=== PATIENT | female | born 1995 | race Caucasian/White ===

== ENCOUNTER 2017-05-10 15:48 | Emergency (ER) | payer OTHER ==
[~2017-05-10] VITALS: Wt 104.7 kg
[~2017-05-10 15:48] MED LIST: PRENAT PO
--- NOTE | 2017-05-10 16:36 | QN ---
Documentation Comment Patient was seen immediately upon arrival as the patient arrived by ambulance. The patient has a complaint of chest pain and will be sent to triage for vital signs and will be seen by another provider. Medical screening exam was initiated. EDWARD KAPADIA MD May 10, 2017 16:36
[2017-05-10] MEDS ORDERED: IBUPROFEN 600 MG TAB PO ONE ×3 (17:30→20:30)
[2017-05-10 17:59] LABS: D-DIMER 464.05 ng/ml (<460)
[2017-05-10] MEDS ORDERED: SOD CHLORIDE 0.9% 1,000 ML IV STA (18:14)
[2017-05-10 19:23] LABS: ALBUMIN 4.6 g/dl (3.3-4.9); ALBUMIN/GLOBULIN RATIO 1.39; BILIRUBIN,INDIRECT 0.2 mg/dl (0-1.1); BILIRUBIN,TOTAL 0.2 mg/dl (0.2-1.3); CALCIUM 9.1 mg/dl (8.4-10.2); CREATININE 0.62 mg/dl (0.44-1.00); POTASSIUM 3.9 mmol/L (3.5-5.1); TOTAL PROTEIN 7.9 g/dl (6.1-8.1)
[2017-05-10] MEDS ORDERED: IOHEXOL 100 ML ONE (19:40)
[2017-05-10] MEDS ORDERED: SOD CHLORIDE 0.9% 100 ML ONE (19:40)
[2017-05-10 19:45] LABS: BASOPHILS % 0.3 % (0.0-2.0); EOSINOPHILS # 0.1 10^3/ul (0.0-0.5); HEMATOCRIT 36.1 % (37.0-47.0); HEMOGLOBIN 12.4 g/dl (12.0-16.0); LYMPHOCYTES # 3.7 10^3/ul (0.8-2.9); LYMPHOCYTES % 37.1 % (15.0-51.0); MEAN CORPUSCULAR HEMOGLOBIN 29.7 pg (29.0-33.0); MEAN CORPUSCULAR HGB CONC 34.3 g/dl (32.0-37.0); MEAN CORPUSCULAR VOLUME 86.6 fl (82.0-101.0); MEAN PLATELET VOLUME 9.6 fl (7.4-10.4); MONOCYTE # 0.4 10^3/ul (0.3-0.9); MONOCYTES % 3.9 % (0.0-11.0); NEUTROPHIL # 5.7 10^3/ul (1.6-7.5); NEUTROPHILS % 57.4 % (39.0-77.0); PLATELET COUNT 285 10^3/UL (140-415); RED BLOOD COUNT 4.17 10^6/ul (4.20-5.40); RED CELL DISTRIBUTION WIDTH 12.1 % (11.5-14.5)
--- NOTE | 2017-05-10 20:19 | RADRPT ---
PROCEDURE: CT Pulmonary Angiogram. CLINICAL INDICATION: Chest pain and shortness of breath. TECHNIQUE: CT pulmonary angiogram and a CT scan of the chest with contrast was performed. The pat ient was scanned following the uncomplicated intravenous administration of 100 cc of Omnipaque-350 i ntravenous contrast. 2-D coronal reformatted images were obtained from the axial source images. In addition, 3-D post processing was performed. Total exam DLP is 699.78 mGy-cm. CTDIvol is 42.25 mG y. One or more of the following dose reduction techniques were used: Automated exposure control, ad justment of the mA and/or kV according to patient size, use of iterative reconstruction technique. D ICOM images are available. COMPARISON: None available. FINDINGS: The pulmonary arteries are normal with no filling defect or lack of enhancement to suggest pulmonary artery embolism. The lungs are clear. There is no pulmonary airspace or interstitial disease. There is no pulmonary nodule or mass lesion. There is no pneumothorax. There is no mediastinal or hilar lymphadenopathy or mass. There is no pleural effusion. There is no pericardial effusion. The thoracic aorta is normal with no aneurysm or dissection. Images through the upper abdomen demonstrate normal visualized portions of the liver, spleen, and ad renals. The osseous structures are normal with no fracture or lytic lesion. IMPRESSION: 1. Normal CT pulmonary angiogram with no evidence of pulmonary artery embolism. 2. Normal CT scan of the chest. RPTAT: QQ .Kwame Holland MD, Date Time Electronically viewed and signed by .Kwame Holland MD, MD on 05/10/2017 20:19 .R/
[2017-05-10] MEDS ORDERED: IBUP-1542 PO (20:24)
[2017-05-10 20:50] VITALS: BP 118/69; PULSE 70; RESP 16; TEMP 97.9
--- NOTE | 2017-05-11 04:52 | ERD ---
ER Documentation Chief Complaint Chief Complaint BIB EMS CP X2 WKS, INT BODY NUMBNESS TO L SIDE, NEG NEURO DEF HPI Patient is a 21-year-old female brought in by EMS from her primary care physician's office for concerns of these 2 weeks. Patient describes her chest pain to be in her left chest and constant. Patient states she has pain in her left arm as well. Patient reports numbness throughout her left body. Patient states it feels as if "my left-sided body is asleep." Patient does report to intermittent shortness of breath. Patient denies any cough. Patient admits to occasional palpitations. She denies any trauma or falls. She denies any abdominal pain, nausea, vomiting or diarrhea. Patient denies any unilateral weakness, slurred speech and difficulty walking. Patient was referred to the ED by her primary care physician for further workup. Patient does admit to hormonal control use. Denies any recent travel, history of PE/DVT, recent surgeries. ROS All systems reviewed and are negative except as per history of present illness. Medications Home Meds Active Scripts Ibuprofen* (Motrin*) 600 Mg Tab, 600 MG PO Q6, #20 TAB Prov:LISSY LORA PA-C 05/10/17 Reported Medications Multivit/Min/Fol Ac/Iron/Pren* ( S*) 1 Tab Tab, 1 TAB PO DAILY, TAB 02/20/15 Allergies Allergies: Coded Allergies: No Known Allergies (Verified Allergy, Unknown, 05/10/17) PMhx/Soc Medical and Surgical Hx: pt denies Medical Hx, pt denies Surgical Hx History of Surgery: No Anesthesia Reaction: No Hx Neurological Disorder: No Hx Respiratory Disorders: No Hx Cardiac Disorders: No Hx Psychiatric Problems: No Hx Miscellaneous Medical Probl: No Hx Alcohol Use: No Hx Substance Use: No Hx Tobacco Use: No Smoking Status: Never smoker Physical Exam Vitals Vital Signs Date Time Temp Pulse Resp B/P Pulse Ox O2 Delivery O2 Flow Rate FiO2 05/10/17 20:50 97.9 70 16 118/69 100 Room Air 05/10/17 15:58 98.6 81 20 135/76 98 Physical Exam GENERAL: Well-developed, well-nourished female. Appears in no acute distress. Speaking in full sentences. HEAD: Normocephalic, atraumatic. EYES: Pupils are equally reactive bilaterally. EOMs grossly intact. No conjunctival erythema. ENT: Moist mucous membranes. No uvula deviation. No kissing tonsils. NECK: Supple. No meningismus. Normal range of motion of the neck. LUNG: Clear to auscultation bilaterally. No rhonchi, wheezing, rales or coarse breath sounds. HEART: Regular rate and rhythm. No murmurs, rubs or gallops. EXTREMITIES: Equal pulses bilaterally. No peripheral clubbing, cyanosis or edema. No unilateral leg swelling. NEUROLOGIC: Alert and oriented x3, cooperative. Mood and affect appropriate to situation. Cranial nerves II through XII are grossly intact. Normal speech. Motor exam: 5/5 strength in upper and lower extremities. Sensory exam: Sensation intact to light touch on all four extremities. Cerebellar function exam: No dysmetria on jewuzr-lw-[id number] ttest. Steady gait. No pronator drift. SKIN: Normal color. Warm and dry. No rashes or lesions. Result Diagram: 05/10/17 1938 05/10/17 1715 Results 24 hrs Laboratory Tests Test 05/10/17 17:15 05/10/17 19:38 D-Dimer 464.05ng/ml D-Dimer Comment Sodium Level 143mmol/L Potassium Level 3.9mmol/L Chloride Level 106mmol/L Carbon Dioxide Level 24mmol/L Anion Gap 17 Blood Urea Nitrogen 11mg/dl Creatinine 0.62mg/dl Glucose Level 94mg/dl Calcium Level 9.1mg/dl Total Bilirubin 0.2mg/dl Direct Bilirubin 0.00mg/dl Indirect Bilirubin 0.2mg/dl Aspartate Amino Transf (AST/SGOT) 26IU/L Alanine Aminotransferase (ALT/SGPT) 43IU/L Alkaline Phosphatase 111IU/L Troponin I < 0.012ng/ml Total Protein 7.9g/dl Albumin 4.6g/dl Globulin 3.30g/dl Albumin/Globulin Ratio 1.39 White Blood Count 10.010^3/ul Red Blood Count 4.1710^6/ul Hemoglobin 12.4g/dl Hematocrit 36.1% Mean Corpuscular Volume 86.6fl Mean Corpuscular Hemoglobin 29.7pg Mean Corpuscular Hemoglobin Concent 34.3g/dl Red Cell Distribution Width 12.1% Platelet Count 68653^3/UL Mean Platelet Volume 9.6fl Neutrophils % 57.4% Lymphocytes % 37.1% Monocytes % 3.9% Eosinophils % 1.0% Basophils % 0.3% Nucleated Red Blood Cells % 0.0/100WBC Neutrophils # 5.710^3/ul Lymphocytes # 3.710^3/ul Monocytes # 0.410^3/ul Eosinophils # 0.110^3/ul Basophils # 0.010^3/ul Nucleated Red Blood Cells # 0.010^3/ul Current Medications Medications (Trade) Dose Ordered Sig/Umm Route PRN Reason Start Time Stop Time Status Last Admin Dose Admin Ibuprofen (Motrin) 600 mg ONCE ONCE PO 05/10/17 17:30 05/10/17 17:31 DC Ibuprofen 600 mg 600 mg ONCE ONCE PO 05/10/17 17:30 05/10/17 18:16 DC 05/10/17 17:44 Sodium Chloride 1,000 ml @ 1,000 mls/hr Q1H STAT IV 05/10/17 18:14 05/10/17 19:13 DC 05/10/17 18:49 Iohexol 100 ml @ ud STK-MED ONCE .ROUTE 05/10/17 19:40 05/10/17 19:41 DC 05/10/17 19:45 Sodium Chloride (NS) 100 ml @ ud STK-MED ONCE .ROUTE 05/10/17 19:40 05/10/17 19:41 DC 05/10/17 19:45 Ibuprofen (Motrin) 600 mg ONCE ONCE PO 05/10/17 20:30 05/10/17 20:51 DC Procedures/MDM ED COURSE: The patient was stable throughout ED course. I kept the patient and/or family informed of laboratory and diagnostic imaging results throughout the ED course. EKG: Read by Dr. Bailey, attending physician. EKG shows normal sinus rhythm with sinus arrhythmia at a rate of [address] elevations or T wave changes were noted. DIAGNOSTIC IMAGING: Read by radiologist. Patient: JOSIAH ADAMSON : 1995 Age: 21 Sex: F MR #: [id number] DOS: 05/10/17 1818 Ordering MD: LISSY LORA PA-C Location: [facility] Room/Bed: PROCEDURE: CT Pulmonary Angiogram. CLINICAL INDICATION: Chest pain and shortness of breath. TECHNIQUE: CT pulmonary angiogram and a CT scan of the chest with contrast was performed. The patient was scanned following the uncomplicated intravenous administration of 100 cc of Omnipaque-350 intravenous contrast. 2-D coronal reformatted images were obtained from the axial source images. In addition, 3- D post processing was performed. Total exam DLP is 699.78 mGy-cm. CTDIvol is 42.25 mGy. One or more of the following dose reduction techniques were used: Automated exposure control, adjustment of the mA and/or kV according to patient size, use of iterative reconstruction technique. DICOM images are available. COMPARISON: None available. FINDINGS: The pulmonary arteries are normal with no filling defect or lack of enhancement to suggest pulmonary artery embolism. The lungs are clear. There is no pulmonary airspace or interstitial disease. There is no pulmonary nodule or mass lesion. There is no pneumothorax. There is no mediastinal or hilar lymphadenopathy or mass. There is no pleural effusion. There is no pericardial effusion. The thoracic aorta is normal with no aneurysm or dissection. Images through the upper abdomen demonstrate normal visualized portions of the liver, spleen, and adrenals. The osseous structures are normal with no fracture or lytic lesion. IMPRESSION: 1. Normal CT pulmonary angiogram with no evidence of pulmonary artery embolism. 2. Normal CT scan of the chest. RPTAT: QQ .Kwame Holland MD, Date Time Electronically viewed and signed by .Kwame Holland MD, on 05/10/2017 20:19 .R/ CC: LISSY LORA PA-C PROCEDURES: None. MEDICATIONS GIVEN: Ibuprofen Patient tolerated medication well with no adverse reactions. Patient reported improvement in pain. MEDICAL DECISION MAKING: This is a 21 year-old female presents to the ED for concerns of chest pain, left -sided body numbness 2 weeks. Patient was referred to the ED by her primary care physician.. Patient denied any leg swelling, recent surgeries, travel. Patient did admit to hormonal use. Vital signs were reviewed. Patient was afebrile. Patient was not hypoxic. Urine test is negative. Cardiac exam was normal. Lung exam was normal. Full neuro exam was normal. EKG was within normal limits. Troponin was negative. D-dimer was obtained. D-dimer was positive. Discussed findings with my supervising physician Dr. Bailey advised me to order a CTPA. Blood work was obtained prior to CTPA. CBC showed no evidence of systemic infection or severe anemia. CMP showed no evidence of electrolyte abnormalities, severe acidosis, alkalosis, renal failure, or liver disease. At this time, the patient's presentation is most consistent with chest pain of unknown etiology. Low suspicion for CVA, TIA, ACS, arrhythmia, pericarditis, pneumonia, pneumothorax, rib fracture, PE, pleural effusion, CHF. Patient was advised to follow-up with her primary care physician. Patient may need to follow-up with a machine packager for further workup. Patient was given a copy of all imaging studies and blood work obtained today. Patient reported improvement in symptoms prior to discharge. PRESCRIPTIONS: Ibuprofen DISCHARGE: At this time, patient is stable for discharge and outpatient management. I have instructed the patient to follow-up with his/her primary care physician in 1-2 days. If symptoms persist, patient may need to see a specialist for further examinations and testing. I have instructed the patient to promptly return to the ER at any time for any new or worsening symptoms including increased increased pain, fever, nausea, vomiting, numbness, weakness, diaphoresis or LOC. The patient and/or family expressed understanding of and agreement with this plan. All questions were answered. Home care instructions were provided. Disclaimer: Inadvertent spelling and grammatical errors are likely due to EHR/ dictation software use and do not reflect on the overall quality of patient care. Also, please note that the electronic time recorded on this note does not necessarily reflect the actual time of the patient encounter. Departure Diagnosis: Primary Impression: Chest pain Chest pain type: unspecified Qualified Code: R07.9 - Chest pain, unspecified type Condition: Stable Patient Instructions: Chest Pain, Uncertain Cause Referrals: SHIRLENE BLOUNT MD (PCP) Additional Instructions: Call your primary care doctor TOMORROW for an appointment during the next 1-2 days.See the doctor sooner or return here if your condition worsens before your appointment time. LISSY LORA PA-C May 11, 2017 04:52
== END 2017-05-10 20:50 | disposition home or self-care (01) ==
LOC: FTE 15:48
DX: R07.9 Chest pain, unspecified (principal)
CPT/HCPCS: 71275; 80053; 84484; 85025; 85378; 93005; J7030; Q9967; Z7502; Z7610

== ENCOUNTER 2017-05-14 08:44 | Emergency (ER) | payer OTHER ==
[~2017-05-14] VITALS: Ht 157.5 cm; Wt 105.5 kg
[~2017-05-14 08:44] MED LIST changes: +IBUP-1542 PO
[2017-05-14 08:47] VITALS: Ht 157.5 cm; Wt 105.5 kg
--- NOTE | 2017-05-14 09:24 | ERD ---
ER Documentation Chief Complaint Chief Complaint Sent from for eval and labwork request HPI Is a 22-year-old female presenting to the emergency department complaining of persistent weakness numbness in the right arm, blurry vision, aching intermittent left-sided headache for the past 2 weeks. Patient has been evaluated by this facility for chest pain on the which is 4 days ago. Patient had left-sided chest pain and had a full workup which ruled out pulmonary embolism. Patient states that the chest pain comes and goes and currently she does not have the pain. Patient has been seen by her primary care physician yesterday who has referred her to the ER to get a CT of the head to rule out stroke. Patient father had a history of stroke. ROS All systems reviewed and are negative except as per history of present illness. Medications Home Meds Active Scripts Acetaminophen* (Tylenol*) 325 Mg Tablet, 2 TAB PO Q4 Y for PAIN AND OR ELEVATED TEMP, #20 TAB Prov:TIM MCGOWAN PA-C 05/14/17 Ibuprofen* (Motrin*) 600 Mg Tab, 600 MG PO Q6, #20 TAB Prov:LISSY LORA PA-C 05/10/17 Reported Medications Multivit/Min/Fol Ac/Iron/Pren* ( S*) 1 Tab Tab, 1 TAB PO DAILY, TAB 02/20/15 Allergies Allergies: Coded Allergies: No Known Allergies (Verified Allergy, Unknown, 05/10/17) PMhx/Soc History of Surgery: No Anesthesia Reaction: No Hx Neurological Disorder: No Hx Respiratory Disorders: No Hx Cardiac Disorders: No Hx Psychiatric Problems: No Hx Miscellaneous Medical Probl: No Hx Alcohol Use: No Hx Substance Use: No Hx Tobacco Use: No Physical Exam Vitals Vital Signs Date Time Temp Pulse Resp B/P Pulse Ox O2 Delivery O2 Flow Rate FiO2 05/14/17 08:47 98.9 56 20 139/65 98 Physical Exam Exam Result Diagram: 05/14/17 09 Results 24 hrs Laboratory Tests Test 05/14/17 09:29 05/14/17 09:34 Urine Color YELLOW Urine Clarity CLEAR Urine pH 5.0 Urine Specific Stokes 1.016 Urine Ketones NEGATIVEmg/dL Urine Nitrite NEGATIVEmg/dL Urine Bilirubin NEGATIVEmg/dL Urine Urobilinogen NEGATIVEmg/dL Urine Leukocyte Esterase NEGATIVELeu/ul Urine Microscopic RBC 1/HPF Urine Microscopic WBC 1/HPF Urine Squamous Epithelial Cells FEW/HPF Urine Hemoglobin 2+mg/dL Urine Glucose NEGATIVEmg/dL Urine Total Protein NEGATIVEmg/dl White Blood Count 8.810^3/ul Red Blood Count 4.6910^6/ul Hemoglobin 13.8g/dl Hematocrit 40.8% Mean Corpuscular Volume 87.0fl Mean Corpuscular Hemoglobin 29.4pg Mean Corpuscular Hemoglobin Concent 33.8g/dl Red Cell Distribution Width 12.2% Platelet Count 10703^3/UL Mean Platelet Volume 9.5fl Neutrophils % 57.9% Lymphocytes % 36.4% Monocytes % 4.4% Eosinophils % 0.8% Basophils % 0.3% Nucleated Red Blood Cells % 0.0/100WBC Neutrophils # 5.110^3/ul Lymphocytes # 3.210^3/ul Monocytes # 0.410^3/ul Eosinophils # 0.110^3/ul Basophils # 0.010^3/ul Nucleated Red Blood Cells # 0.010^3/ul Procedures/MDM Is a 22-year-old female presenting to the emergency department with numbness weakness in the right arm, left-sided headache, and chest pain for the past 2 weeks. Patient has been evaluated at this facility on May 10 and had a pulmonary embolism ruled out with CTA. Patient was seen at her primary care physician yesterday, she was sent here to get a CT of the head to rule out stroke. On examination, patient appears well, she has stable vital signs. Her neurological exam was normal. She is speaking clearly and ambulating well. CT of the head did not show any evidence of acute pathology. I have discussed with patient for her to continue to follow-up with her primary care physician to get a referral to see a neurologist. I discussed return to the ER for any worsening signs or symptoms. Patient understands and agrees with this plan Lab work was drawn. CBC did not show any evidence of leukocytosis or anemia. CMP did not show any evidence of renal, liver, or electrolyte abnormalities. Lipase was normal. UA did not show any evidence of hemoglobin or urinary tract infection. Departure Diagnosis: Primary Impression: Headache Condition: Stable TIM MCGOWAN PA-C May 14, 2017 09:24
[2017-05-14 09:44] LABS: BASOPHILS % 0.3 % (0.0-2.0); EOSINOPHILS # 0.1 10^3/ul (0.0-0.5); EOSINOPHILS % 0.8 % (0.0-7.0); HEMATOCRIT 40.8 % (37.0-47.0); HEMOGLOBIN 13.8 g/dl (12.0-16.0); LYMPHOCYTES # 3.2 10^3/ul (0.8-2.9); LYMPHOCYTES % 36.4 % (15.0-51.0); MEAN CORPUSCULAR HEMOGLOBIN 29.4 pg (29.0-33.0); MEAN CORPUSCULAR HGB CONC 33.8 g/dl (32.0-37.0); MEAN PLATELET VOLUME 9.5 fl (7.4-10.4); MONOCYTE # 0.4 10^3/ul (0.3-0.9); MONOCYTES % 4.4 % (0.0-11.0); NEUTROPHIL # 5.1 10^3/ul (1.6-7.5); NEUTROPHILS % 57.9 % (39.0-77.0); PLATELET COUNT 287 10^3/UL (140-415); RED BLOOD COUNT 4.69 10^6/ul (4.20-5.40); RED CELL DISTRIBUTION WIDTH 12.2 % (11.5-14.5); WHITE BLOOD COUNT 8.8 10^3/ul (4.8-10.8)
[2017-05-14 09:51] LABS: ADD UMIC YES; UR ASCORBIC ACID NEGATIVE (NEGATIVE); UR BILIRUBIN (Dip) NEGATIVE (NEGATIVE); UR BLOOD (Dip) 2+ mg/dL (NEGATIVE); UR CLARITY CLEAR (CLEAR); UR COLOR YELLOW (YELLOW); UR GLUCOSE (Dip) NEGATIVE (NEGATIVE); UR KETONES (Dip) NEGATIVE (NEGATIVE); UR LEUKOCYTE ESTERASE (Dip) NEGATIVE Leu/ul (NEGATIVE); UR NITRITE (Dip) NEGATIVE (NEGATIVE); UR RBC 1 /HPF (0-5); UR SPECIFIC GRAVITY (Dip) 1.016 (1.003-1.030); UR SQUAMOUS EPITHELIAL CELL FEW /HPF (FEW); UR TOTAL PROTEIN (Dip) NEGATIVE (NEGATIVE); UR UROBILINOGEN (Dip) NEGATIVE (NEGATIVE)
--- NOTE | 2017-05-14 09:54 | RADRPT ---
PROCEDURE: CT Brain without. CLINICAL INDICATION: Headache, tingling, numbness. TECHNIQUE: A CT of the brain was performed on multidetector high-resolution CT scanner utilizing a xial sections from the skull base through the vertex without contrast. The scan was reviewed in sof t tissue brain and high frequency resolution bone algorithm windows. Images were reviewed on a high -resolution PACS workstation. One or more the following does reduction techniques were utilized: Aut omated exposure control, adjustment of the mA/ or kV according to patient's size, or use of iterativ e reconstruction technique. The exam CTDI = 44.97 mGy and the DLP = 720.23 mGy-cm. DICOM images are available. COMPARISON: None available. FINDINGS: The ventricles and sulci are age-appropriate. There is no intracranial hemorrhage, mass effect or mi dline shift. No abnormal intra-axial or extra-axial fluid collections are seen. The vivas/white zach er differentiation is preserved. No acute skull abnormality is noted. The visualized paranasal sinus es are essentially clear. IMPRESSION: 1. No acute intracranial hemorrhage, transcortical infarction or mass effect. If clinical concern p ersists brain MRI can be obtained. RPTAT: HH .Regine Sam MD, MD Date Time Electronically viewed and signed by .Regine Sam MD, MD on 05/14/2017 09:54 .N/
[2017-05-14] MEDS ORDERED: ACET325T33 PO (09:58)
[2017-05-14 10:06] LABS: ALBUMIN 4.3 g/dl (3.3-4.9); ALBUMIN/GLOBULIN RATIO 1.1; BILIRUBIN,INDIRECT 0.2 mg/dl (0-1.1); BILIRUBIN,TOTAL 0.2 mg/dl (0.2-1.3); CALCIUM 9.7 mg/dl (8.4-10.2); CREATININE 0.65 mg/dl (0.44-1.00); POTASSIUM 4.4 mmol/L (3.5-5.1); TOTAL PROTEIN 8.2 g/dl (6.1-8.1)
== END 2017-05-14 10:18 | disposition home or self-care (01) ==
LOC: FTE 08:44
DX: R51 Headache (principal)
CPT/HCPCS: 70450; 80053; 81001; 85025; Z7502